=== PATIENT | female | born 2005 | race Caucasian/White ===

== ENCOUNTER 2025-09-12 18:50 | Emergency (ER) | payer OTHER, SELFPAY ==
[2025-09-12 19:01] VITALS: BP 148/79; PULSE 110; RESP 20; TEMP 37.2; O2SAT 99; BMI 26.3
--- NOTE | 2025-09-12 19:11 | ED.NURSE ---
cancelled TTA at 191
--- NOTE | 2025-09-12 19:20 | ED_ITS ---
HPI - Wound/Laceration General Chief Complaint: Laceration/Wound Stated Complaint: Laceration on head, L side Time Seen by Provider: 09/12/25 19:01 History of Present Illness HPI narrative: This 20 year old female comes in because of a head injury that occurred just prior to arrival. A trauma team activation was initiated on arrival. She was kicked in the head by her horse. She did not have loss of consciousness or have any other injury. She does not report headache and has not had any nausea or vomiting. She has a 3 cm linear laceration on the lateral side of her left head above her adventist region. There is no ongoing active bleeding. She does not report any neck pain. Related Data Home Medications ?Medication ?Instructions ?Recorded ?Confirmed No Known Home Medications 12/17/2205/01 Allergies Allergy/AdvReac Type Severity Reaction Status Date / Time No Known Drug Allergies Allergy Verified 09/12/25 18:56 Review of Systems Status of ROS: Reports: 10 or more systems reviewed and unremarkable except as noted in History and below Narrative: Constitutional: No fevers, no weight gain or loss. Eyes: No discharge. No vision changes. HENT: No congestion, no sore throat, no ear pain. Cardiovascular: No chest pain, no palpitations. Respiratory: No shortness of breath, no wheezes, no cough. Gastrointestinal: No abdominal pain, no vomiting, no diarrhea. Genitourinary: No dysuria, no hematuria. Musculoskeletal: Normal range of motion. Skin: No rashes, no pruritis. Neurological: No dizziness, weakness, sensory change, speech change. Endo/Heme/Allergies: No bruising or bleeding. No polydipsia. Pysch: no suicidality, no anxiety, no insomnia. All other systems reviewed and are negative. [facility] Social History Smoking Status: Never smoker Exam Narrative: Exam Narrative: Primary Survey: Vital Signs are within normal limits. Airway: Open. Breathing: Easy. Circulation: no obvious bleeding; normal capillary refill. Disability: GCS is 15. Normal pupillary response and motor movements. Secondary Survey: Head: 4 cm irregular laceration in the left temporal region without any underlying hematoma. Neck: No midline tenderness. ROM intact. Chest: Non tender. No external signs of trauma. Abdomen: Non tender. No rebound tenderness. Normal bowel sounds. Pelvis/Genitals: No tenderness to A/P and lateral stress. No blood at the urethral meatus. Extremities: Atraumatic. Back: No midline tenderness. No sign of injury. Neuro: No facial asymmetry. Tongue is midline. [id number] is normal. No pronator drift. [employer] Account[employer] strength is equal bilaterally. Able to raise each leg from the bed. Primary and Secondary surveys are completed. The patient's GCS is 15. [A decision to transfer this patient was made at ] Const: Vital Signs, click to edit/add: Vital Signs - 24 hr 09/12/25 19:01 Temperature 98.9 F Pulse Rate [Pulse Oximeter] 110 H Respiratory Rate 20 Blood Pressure [Ri ght Upper Arm] 148/79 H Pulse Oximetry 99 Oxygen Delivery Me thod Room Air Course Vital Signs Vital signs: Initial Vital Signs Temperature 98.9 F 09/12/25 19:01 Temperature Source Temporal Artery Scan 09/12/25 19:01 Pulse Rate 110 H 09/12/25 19:01 Respiratory Rate 20 09/12/25 19:01 Blood Pressure 148/79 H 09/12/25 19:01 Blood Pressure Mean 102 09/12/25 19:01 Pulse Oximetry 99 09/12/25 19:01 Oxygen Delivery Method Room Air 09/12/25 19:01 Vital Signs Temperature 98.9 F 09/12/25 19:01 Pulse Rate 110 H 09/12/25 19:01 Respiratory Rate 20 09/12/25 19:01 Blood Pressure 148/79 H 09/12/25 19:01 Pulse Oximetry 99 09/12/25 19:01 Oxygen Delivery Method Room Air 09/12/25 19:01 Temperature 98.9 F 09/12/25 19:01 Pulse Rate 110 H 09/12/25 19:01 Respiratory Rate 20 09/12/25 19:01 Blood Pressure 148/79 H 09/12/25 19:01 Pulse Oximetry 99 09/12/25 19:01 Oxygen Delivery Method Room Air 09/12/25 19:01 MDM - Wound/Laceration MDM Narrative Medical decision making narrative: This patient comes in with a injury to the left side of her head as described above. She has a 4 cm irregular laceration in this area that would benefit from repair. She does not have any other injury. I did discuss nexus rules for head injury and stated that many times we do CT scan imaging. The patient declined this study. She does have reassuring results regarding the nexus rules and is not displaying any findings that raise concern otherwise. The wound was cleansed and I did anesthetize the area with 1% lidocaine with epinephrine. I placed 7 canelo to approximate the wound edges. Instructions were given regarding wound care and the need to have the canelo removed in 5-7 days. She can use [id number] medicines as needed and directed for symptomatic relief. She is not complaining of a headache. Discharge Plan Discharge Clinical Impression: Laceration Patient Disposition: Home w/ Parent or Adult Condition: Improved Additional Instructions: Keep wound clean and dry. Use [id number]-[id number] medicines as needed and directed. Follow up with clinic or urgent care in 5-7 days for staple removal. Return if worsening. Prescriptions: No Action No Known Home Medications Follow Up/Referrals: Angi Sloan MD [Primary Care Provider, Family Practice] Stand Alone Forms: [employer] Info Instructions
--- NOTE | 2025-09-12 19:29 | ED.NURSE ---
left scalp laceration cleaned with saline. laceration is approximately 2 inches long and deep in appearance. there is swelling to the posterior of the laceration. She denies headache, nausea, lightheadedness or any loss of consciousness after the injury. not planning for CT at this time. planning to staple laceration.
[2025-09-12 20:41] VITALS: BP 108/74; PULSE 87; RESP 18; O2SAT 98
--- NOTE | 2025-09-12 20:42 | ED.NURSE ---
Patients laceration was stapled by Dr. Omer. Discharge instructions given. Education provided on signs and symptoms of concussion and when to return to the ER. Both patient and her father verbalized understanding.
== END 2025-09-12 22:00 | disposition home or self-care (01) ==
LOC: ED 20:00
PROVIDERS: Emergency Provider Emergency Medicine Emergency Medical Services; PCP Family Medicine
DX: S01.01XA Laceration without foreign body of scalp, initial encounter (principal); W55.12XA Struck by horse, initial encounter
CPT/HCPCS: 12002; 99283; 99284; 99291; G0390